=== PATIENT | male | born 2000 | race Two or more races ===

== ENCOUNTER 2021-10-19 08:50 | Emergency (ER) | payer SELFPAY ==
[~2021-10-19] VITALS: Ht 167.6 cm; Wt 63.5 kg
[2021-10-19 08:52] VITALS: BP 132/84
[2021-10-19] MEDS ORDERED: HYDR25SU21 PR (10:18)
[2021-10-19] MEDS ORDERED: IBUP600T27 PO (10:18)
== END 2021-10-19 10:37 | disposition home or self-care (01) ==
LOC: ER 08:50
DX: K64.4 Residual hemorrhoidal skin tags (principal); F12.10 Cannabis abuse, uncomplicated